=== PATIENT | male | born 1995 | race Caucasian/White ===

== ENCOUNTER 2016-07-28 01:04 | Emergency (ER) | payer SELFPAY ==
[2016-07-28 01:53] VITALS: BP 124/71
== END 2016-07-28 01:53 | disposition home or self-care (01) ==
LOC: ED 01:04
DX: S01.511A Laceration without foreign body of lip, initial encounter (principal); Z88.0 Allergy status to penicillin; W50.0XXA Accidental hit or strike by another person, initial encounter; Y93.67 Activity, basketball; Y92.89 Other specified places as the place of occurrence of the external cause; Y99.8 Other external cause status